=== PATIENT | female | born 1955 | race Caucasian/White ===

== ENCOUNTER 2016-12-02 12:32 | Emergency (ER) | payer BC ==
[2016-12-02 12:46] VITALS: TEMP 98.1
--- NOTE | 2016-12-02 13:05 | CPEKG ---
Heart Rate: 72 RR Interval: 833 P-R Interval: 156 QRSD Interval: 80 QT Interval: 388 QTC Interval: 425 P [place]: 74 QRS [place]: -1 T Wave [place]: 44 EKG Severity - NORMAL ECG - EKG Impression: SINUS RHYTHM Electronically Signed By: Diana Davis 02-Dec-2016 21:36:16
--- NOTE | 2016-12-02 13:22 | EDPHY ---
H & P Time Seen by Provider: 12/02/16 12:56 HPI/ROS: CHIEF COMPLAINT: Woozy sensation HISTORY OF PRESENT ILLNESS: 61-year-old female presents with a woozy sensation. 2 days ago, she awoke with a feeling of wooziness. The wooziness is increased with standing and with head movement. The feeling gradually subsided during the day and she was asymptomatic in the evening. Since then she has had a few similar episodes of feeling like she is drunk and feeling off balance. This morning she turned over in bed and the woozy sensation returned. Associated with nausea. She now feels better and only has slight wooziness. 1 week ago she recovered from an upper respiratory infection. She denies recent head or neck trauma. No prior similar symptoms. REVIEW OF SYSTEMS: Constitutional: No fever, no chills Eyes: No visual changes ENT: No sore throat Respiratory: No cough, no shortness of breath Cardiac: No chest pain Gastrointestinal: no vomiting, no abdominal pain Genitourinary: No hematuria, no dysuria Musculoskeletal: No leg pain or swelling Skin: No rash Neurological: No headache, no numbness, no weakness Psychiatric: No depression Past Medical/Surgical History: Denies Social History: Engaged, getting in 2 days. Smoking Status: Never smoked Physical Exam: General Appearance: Alert, pleasant Eyes: Pupils equal and round, no conjunctival pallor or injection, horizontal nystagmus ENT, Mouth: Mucous membranes moist Neck: Normal inspection, no bruit Respiratory: Lungs are clear to auscultation Cardiovascular: Regular rate and rhythm Gastrointestinal: Abdomen is soft and nontender Neurological: Alert, oriented x3, cranial nerves II through XII intact, motor 5 /5, sensory intact to light touch, normal gait. Skin: Warm and dry, no rash Extremities: Nontender, no pedal edema Psychiatric: Mood and affect normal Constitutional: Initial Vital Signs Temperature (C) 36.7 C 12/02/16 12:43 Heart Rate 74 12/02/16 12:43 Respiratory Rate 18 12/02/16 12:43 Blood Pressure 136/82 H 12/02/16 12:43 O2 Sat (%) 95 12/02/16 12:43 O2 Delivery Mode Room Air Allergies/Adverse Reactions: NSAIDS (Non-Steroidal Anti-Inflamma Allergy (Verified 12/02/16 12:43) Home Medications: Medication Instructions Recorded Meclizine HCl [Meclizine HCl 25 mg 25 mg PO TID PRN #15 tab 12/02/16 (RX,OTC)] Valtrex 12/02/16 Medical Decision Making - Diagnostics EKG Interpretation: EKG interpreted by me reveals normal sinus rhythm, no ST or T segment changes. Impression: Normal EKG ED Course/Re-evaluation: This patient presents with peripheral vertigo. There are no concerning signs or symptoms for a central etiology for her vertigo. Neurologic exam is normal. Neuro imaging is not indicated. Stat EKG reveals no evidence of ischemia or dysrhythmia. Meclizine 25 mg orally given. Feels better after meclizine. Laboratory studies normal. Safe and stable for discharge. Differential Diagnosis: Differential diagnosis includes TIA, stroke, intracranial hemorrhage, tumor, electrolyte abnormality and acute labyrinthitis. - Data Points Laboratory Results: 12/02/16 12/02/16 13:10 13:10 WBC Pending RBC Pending Hgb Pending Hct Pending MCV Pending MCH Pending MCHC Pending RDW Pending Plt Count Pending MPV Pending Neut % (Auto) Pending Lymph % (Auto) Pending [place] % (Auto) Pending Eos % (Auto) Pending Baso % (Auto) Pending Nucleat RBC Rel Count Pending Absolute Neuts (auto) Pending Absolute Lymphs (auto) Pending Absolute Monos (auto) Pending Absolute Eos (auto) Pending Absolute Basos (auto) Pending Absolute Nucleated RBC Pending Immature Gran % Pending Immature Gran # Pending Sodium Pending Potassium Pending Chloride Pending Carbon Dioxide Pending Anion Gap Pending BUN Pending Creatinine Pending Estimated GFR Pending Glucose Pending Calcium Pending Departure - Departure Disposition: Home, Routine, Self-Care Clinical Impression: Vertigo Condition: Good Instructions: Vertigo (ED) Additional Instructions: Return for worsening symptoms or any concerns. Take meclizine as needed for vertigo. Referrals: Kathleen Louis MD [[facility] [place] Primary Care Provider] - 2-3 days, if not improved Prescriptions: Meclizine HCl [Meclizine HCl 25 mg (RX,OTC)] 25 mg PO TID PRN #15 tab PRN Reason: Dizziness
[2016-12-02 13:23] LABS: % IMMATURE GRANULYOCYTES 0.3 % (0.0-1.1); ABSOLUTE IMMATURE GRANULOCYTES 0.02 10^3/uL (0.00-0.10); ADD DIFF? NO; ADD MORPH? NO; ADD SCAN? NO; ATYPICAL LYMPHOCYTE FLAG 10 (0-99); FRAGMENT RBC FLAG 0 (0-99); HEMOGLOBIN 13.7 g/dL (12.6-16.3); LEFT SHIFT FLG 0 (0-99); LIPEMIA HEMOLYSIS FLAG 90 (0-99); MEAN CELL HEMOGLOBIN 30.6 pg (27.9-34.1); MEAN CELL HEMOGLOBIN CONCENTR. 34.3 g/dL (32.4-36.7); MEAN CELL VOLUME 89.5 fL (81.5-99.8); MEAN PLATELET VOLUME 9.8 fL (8.7-11.7); PLATELET CLUMPS FLAG 30 (0-99); PLATELET COUNT 247 10^3/uL (150-400); RED BLOOD CELL COUNT 4.47 10^6/uL (4.18-5.33); RED CELL DISTRIBUTION WIDTH 12.9 % (11.5-15.2)
[2016-12-02] MEDS ORDERED: MECLIZINE HCL 25 MG TAB PO ONE (13:24)
[2016-12-02] MEDS ORDERED: NS 1,000 ML IV ONE (13:36)
[2016-12-02 13:43] LABS: ANION GAP 14 mEq/L (8-16); CALCIUM 9.7 mg/dL (8.5-10.4); CARBON DIOXIDE 22 mEq/l (22-31); CHLORIDE 106 mEq/L (97-110); CREATININE 0.9 mg/dL (0.6-1.0); GLOMERULAR FILTRATION RATE > 60; GLUCOSE 121 mg/dL (70-100); POTASSIUM 4.1 mEq/L (3.5-5.2); SODIUM 142 mEq/L (134-144)
[2016-12-02 14:17] VITALS: BP 121/83; PULSE 68; RESP 16; O2SAT 91
== END 2016-12-02 14:16 | disposition home or self-care (01) ==
DX: R42 Dizziness and giddiness (principal); E86.9 Volume depletion, unspecified